=== PATIENT | female | born 1945 | race American Indian/Alaskan Native ===

== ENCOUNTER 2016-09-12 09:13 | Emergency (ER) | payer MEDICARE ==
[2016-09-12 09:20] VITALS: BMI 28.5
[2016-09-12 09:24] VITALS: O2SAT 100
--- NOTE | 2016-09-12 10:35 | C.PDOC ---
History Of Present Illness 71-year-old female, PMHx includes Hypertension and Diabetes, presents to the emergency department with complaints of two day duration of an itchy painful rash to the right leg. Denies fevers, nausea/vomiting, recent travel, or any other associated symptoms. No other complaints at this time. Time Seen by Provider: 09/12/16 09:51 Chief Complaint (Nursing): Abnormal Skin Integrity History Per: Patient History/Exam Limitations: no limitations Past Medical History Reviewed: Historical Data, Nursing Documentation, Vital Signs Vital Signs: Last Vital Signs Temp 97.4 F L 09/12/16 10:39 Pulse 70 09/12/16 10:39 Resp 18 09/12/16 10:39 BP 119/72 09/12/16 10:39 Pulse Ox 100 09/12/16 15:15 - Medical History PMH: Arthritis, Diabetes, HTN, Malignancy (LEUKEMIA) Denies: Chronic Kidney Disease Family History: States: Unknown Family Hx - Social History Hx Tobacco Use: No Hx Alcohol Use: No Hx Substance Use: No - Immunization History Hx Tetanus Toxoid Vaccination: No Hx Influenza Vaccination: No Hx Pneumococcal Vaccination: No Review Of Systems Except As Marked, All Systems Reviewed And Found Negative. Constitutional: Negative for: Fever Respiratory: Negative for: Shortness of Breath Gastrointestinal: Negative for: Vomiting Musculoskeletal: Negative for: Back Pain Skin: Positive for: Rash Physical Exam - Physical Exam Appears: Non-toxic, No Acute Distress Skin: Warm, Dry, Rash (clusters of vesicles anteriolateral aspect of right upper leg.) Head: Atraumatic Eye(s): bilateral: Normal Inspection, PERRL Nose: Normal Oral Mucosa: Moist Lips: Normal Appearing Neck: Normal ROM Respiratory: No Accessory Muscle Use Extremity: Normal ROM Neurological/Psych: Oriented x3, Normal Speech ED Course And Treatment O2 Sat by Pulse Oximetry: 100 Medical Decision Making Medical Decision Making: Impression Shingles Plan * Zovirax * Reassess and Discharge Dispo: Patient will be discharged w/ Rx for Acyclovir, and will be discharged for outpatient f/u with PMD. All questions answered and patient agreeable with plan. Disposition - Disposition Disposition: HOME/ ROUTINE Disposition Time: 11:06 Condition: STABLE Additional Instructions: Follow up with PMD/mud car worker within 1-2 days. Return to Ed if feel worse. Prescriptions: Gabapentin [Neurontin] 100 mg PO TID #60 capsule traMADol [Ultram] 50 mg PO Q6 #30 tab Valacyclovir HCl [Valtrex] 1,000 mg PO TID #42 tablet Instructions: Shingles (ED) - Clinical Impression Clinical Impression: Zoster - Scribe Statement The provider has reviewed the documentation as recorded by the Sanketibe Marie Putnam All medical record entries made by the Sanketibedison were at my direction and personally dictated by me. I have reviewed the chart and agree that the record accurately reflects my personal performance of the history, physical exam, medical decision making, and the department course for this patient. I have also personally directed, reviewed, and agree with the discharge instructions and disposition.
[2016-09-12 10:39] VITALS: BP 119/72; PULSE 70; RESP 18; TEMP 97.4
== END 2016-09-12 11:15 | disposition home or self-care (01) ==
LOC: C.ER 09:13
DX: B02.9 Zoster without complications (principal)

== ENCOUNTER 2016-10-14 05:27 | Emergency (ER) | payer MEDICARE ==
[2016-10-14 05:27] VITALS: BMI 28.5
[2016-10-14 05:57] VITALS: RESP 20
[2016-10-14] MEDS ORDERED: Oxycodone/Acetaminophen 5/325 mg Tab PO STA (06:26)
[2016-10-14] MEDS ORDERED: Oxycodone/Acetaminophen 5/325 mg Tab ONE (06:29)
--- NOTE | 2016-10-14 06:30 | C.PDOC ---
History Of Present Illness 71 year old female was brought to the ED by ambulance with complaints of pain in right shoulder radiating down the right arm for one week. Patient denies any trauma to the right arm, dizziness, or any other complaints at this time. Time Seen by Provider: 10/14/16 05:58 Chief Complaint (Nursing): Upper Extremity Problem/Injury History Per: Patient History/Exam Limitations: no limitations Onset/Duration Of Symptoms: Days (one week ) Current Symptoms Are (Timing): Still Present Quality: "Pain" Severity: Mild Pain Scale Rating Of: 4 Recent travel outside of the [place]: No Past Medical History Reviewed: Historical Data, Nursing Documentation, Vital Signs Vital Signs: Last Vital Signs Temp 98.2 F 10/14/16 05:50 Pulse 56 L 10/14/16 05:50 Resp 20 10/14/16 05:50 BP 108/69 10/14/16 05:50 Pulse Ox 99 10/14/16 06:31 - Medical History PMH: Arthritis, Diabetes, HTN, Hyperlipidemia, Malignancy (LEUKEMIA) Family History: States: Unknown Family Hx - Social History Hx Tobacco Use: No Hx Alcohol Use: No Hx Substance Use: No - Immunization History Hx Tetanus Toxoid Vaccination: No Hx Influenza Vaccination: No Hx Pneumococcal Vaccination: No Review Of Systems Constitutional: Negative for: Fever, Chills, Sweats Cardiovascular: Negative for: Chest Pain, Palpitations Respiratory: Negative for: Cough, Shortness of Breath Gastrointestinal: Negative for: Nausea, Vomiting, Abdominal Pain, Diarrhea Musculoskeletal: Positive for: Shoulder Pain (right ), Arm Pain (right ) Skin: Negative for: Rash, Bruising Physical Exam - Physical Exam Appears: Non-toxic, No Acute Distress Skin: Warm, Dry Head: Atraumatic Oral Mucosa: Moist Neck: Supple Chest: Symmetrical, No Deformity Cardiovascular: Rhythm Regular Respiratory: No Rales, No Rhonchi, No Stridor, No Wheezing Gastrointestinal/Abdominal: Soft, No Tenderness, No Distention, No Guarding, No Rebound Extremity: No Normal ROM (decreased ROM in right arm. Patient describes as needing to forcefully move right arm for movement), Tenderness (tenderness in right shoulder), No Swelling Neurological/Psych: Oriented x3 ED Course And Treatment O2 Sat by Pulse Oximetry: 99 (room air ) Disposition - Disposition Disposition Time: 07:07 Condition: STABLE - Clinical Impression Clinical Impression: Shoulder pain - Scribe Statement The provider has reviewed the documentation as recorded by the Scribe Leia Valenzuela All medical record entries made by the Scribe were at my direction and personally dictated by me. I have reviewed the chart and agree that the record accurately reflects my personal performance of the history, physical exam, medical decision making, and the department course for this patient. I have also personally directed, reviewed, and agree with the discharge instructions and disposition. Physician Patient Turnover Patient Signed Over To: Miriam Taylor Handoff Comments: XRAY pending
--- NOTE | 2016-10-14 07:46 | RAD ---
Right shoulder three views History: Shoulder pain. Comparison: None available. Findings: Mild to moderate narrowing of the glenohumeral and acromioclavicular joint spaces. Productive change with bony osteophyte formation noted off the lateral aspect of the acromion. Productive change and or osteophyte formation/calcific tendinopathy/loose osteochondral body adjacent to the lateral aspect of the greater tuberosity. Impression: Mild to moderate narrowing of the glenohumeral and acromioclavicular joint spaces. Productive change with bony osteophyte formation noted off the lateral aspect of the acromion. Productive change and or osteophyte formation/calcific tendinopathy/loose osteochondral body adjacent to the lateral aspect of the greater tuberosity. If pain persists, consider MRI.
[2016-10-14 07:51] VITALS: BP 110/64; PULSE 62; TEMP 98.4; O2SAT 100
== END 2016-10-14 08:41 | disposition home or self-care (01) ==
LOC: C.ER 05:27
DX: M25.511 Pain in right shoulder (principal)

== ENCOUNTER 2016-12-26 08:47 | Day surgery (SDC) | payer MEDICARE ==
--- NOTE | 2016-12-26 11:39 | CP.SDSHP ---
Same Day Surgery H & P - History Proposed Procedure: THyroid nodule FNA Pre-Op Diagnosis: Right thyroid nodule - Allergies Allergies: Allergies Penicillins Allergy (Verified 09/12/16 09:17) - Physical Exam Vital Signs: Vital Signs 12/26/16 09:14 Temperature 97.4 F L Pulse Rate 61 Respiratory 20 Rate Blood Pressure 105/59 L O2 Sat by Pulse 98 Oximetry Short Stay Discharge - Short Stay Discharge Admitting Diagnosis/Reason for Visit: THYROID NODULE Disposition: HOME/ ROUTINE
--- NOTE | 2016-12-26 11:40 | PCM.SURG1 ---
Surgeon's Initial Post Op Note - Surgeon's Notes Surgeon: [employer] Salesperson: None Type of Anesthesia: Local Pre-Operative Diagnosis: Right thyroid nodule. Operative Findings: Right thyroid nodule. Post-Operative Diagnosis: Right thyroid nodule. Operation Performed: Right thyroid nodule FNA. Specimen/Specimens Removed: Right thyroid nodule FNA samples. Estimated Blood Loss: EBL {In ML}: 1 Date of Surgery/Procedure: 12/26/16 Time of Surgery/Procedure: 11:40
[2016-12-26 11:45] VITALS: BMI 27.1
[2016-12-26 13:02] VITALS: BP 98/58; PULSE 67; RESP 18; TEMP 98.2; O2SAT 99
--- NOTE | 2016-12-28 11:36 | US ---
PROCEDURE: Ultrasound-guided right thyroid lobe fine needle aspiration biopsy. Clinical Indication: Right lobe thyroid nodule. Evaluate for malignancy. COMPARISON: Comparison is made to prior ultrasound of the thyroid gland from 07/26/2016. PROCEDURE: The relative risks and indications for the procedure were explained to the patient and consent obtained. The patient was placed supine on the stretcher with the neck extended and preliminary sonography of the thyroid performed. This reveal a mildly heterogeneous nodule mid/medial aspect of the right thyroid lobe. The neck was prepped and draped in the usual sterile fashion. Three passes with a 25-gauge needle were performed under ultrasound guidance for fine needle aspiration of the heterogeneous nodule in the right thyroid lobe. The slides were reviewed by pathology and deemed adequate. The patient tolerated the procedure well. IMPRESSION: Ultrasound-guided fine needle aspiration biopsy of right thyroid lobe nodule as described above.
== END 2016-12-26 13:02 | disposition home or self-care (01) ==
LOC: C.SPRAD 08:47
PROVIDERS: ATTEND Radiology Vascular & Interventional Radiology
DX: E04.1 Nontoxic single thyroid nodule (principal); Z88.0 Allergy status to penicillin

== ENCOUNTER 2018-01-20 06:10 | Emergency (ER) | payer MEDICARE ==
[2018-01-20 06:10] VITALS: BMI 27.1
[2018-01-20] MEDS ORDERED: Sodium Chloride 0.9% 1,000 ML IV ONE (07:55)
[2018-01-20 08:12] LABS: BASO % 0.5 % (0.0-2.0); EOS # 0.2 K/uL (0.0-0.7); EOS % 4.6 % (0.0-4.0); HEMOGLOBIN 12.2 g/dL (11.0-16.0); LYMPH # 1.3 K/uL (1.0-4.3); LYMPH % 26.5 % (20.0-40.0); MEAN CELL VOLUME 86.4 fL (81.0-99.0); MEAN CORPUSCULAR HEMOGLOBIN 29.2 pg (27.0-31.0); MEAN CORPUSCULAR HGB CONC 33.8 g/dL (33.0-37.0); MEAN PLATELET VOLUME 9.2 fL (7.2-11.7); MONO # 0.4 K/uL (0.0-0.8); NEUT # 2.9 K/uL (1.8-7.0); NEUT % 59.4 % (50.0-75.0); RBC 4.16 Mil/uL (3.80-5.20); WHITE BLOOD COUNT 4.9 K/uL (4.8-10.8)
--- NOTE | 2018-01-20 08:15 | C.PDOC ---
History Of Present Illness 72 year old female presents to the emergency department with complaints of experiencing a cough, nausea, vomiting, diarrhea, ear pain, and sore throat for the last four days. Patient reports that her cough is productive with yellow and white sputum. She reports that she is a smoker who recently quit two weeks ago, and she denies any history of lung diseases. She states that she has been having post-tussive emesis, nausea, and has had 3 episodes of diarrhea. She denies travel, chest pain, shortness of breath, rash, neck pain, and abdominal pain. Time Seen by Provider: 01/20/18 07:07 Chief Complaint (Nursing): Cough, Cold, Congestion History Per: Patient History/Exam Limitations: no limitations Onset/Duration Of Symptoms: Days (4) Current Symptoms Are (Timing): Still Present Location Of Pain: Ear(s), Throat Associated Symptoms: Fever, Sore Throat, Cough, Sputum, Nausea, Vomiting, Diarrhea Ear Symptoms: Bilateral: Ear Pain Past Medical History Reviewed: Historical Data, Nursing Documentation, Vital Signs Vital Signs: Last Vital Signs Temp 98.1 F 01/20/18 11:34 Pulse 71 01/20/18 11:34 Resp 16 01/20/18 11:34 BP 136/75 01/20/18 11:34 Pulse Ox 99 01/20/18 11:34 - Medical History PMH: Arthritis, Cardia Arrhythmia ( BRADYCARDIA), Diabetes, HTN, Hypercholesterolemia, Hyperlipidemia, Malignancy (LEUKEMIA), Chronic Kidney Disease (RENAL INSUFFICIENCY) Surgical History: No Surg Hx Family History: States: No Known Family Hx - Social History Hx Tobacco Use: No Hx Alcohol Use: No Hx Substance Use: No - Immunization History Hx Tetanus Toxoid Vaccination: No Hx Influenza Vaccination: No Hx Pneumococcal Vaccination: No Review Of Systems Except As Marked, All Systems Reviewed And Found Negative. Constitutional: Positive for: Fever Cardiovascular: Negative for: Chest Pain Respiratory: Positive for: Cough, Sputum. Negative for: Shortness of Breath Gastrointestinal: Positive for: Nausea, Vomiting, Diarrhea. Negative for: Abdominal Pain Musculoskeletal: Negative for: Neck Pain Skin: Negative for: Rash Physical Exam - Physical Exam Appears: Non-toxic, No Acute Distress Skin: Warm, Dry Head: Atraumatic, Normacephalic Eye(s): bilateral: Normal Inspection Ear(s): Bilateral: Normal Oral Mucosa: Moist Throat: Normal, No Erythema, No Exudate Neck: Normal, Supple Chest: Symmetrical Cardiovascular: Rhythm Regular, No Murmur Respiratory: No Rales, Rhonchi (coarse, bilateral), No Wheezing, No Other ( retractions) Gastrointestinal/Abdominal: Normal Exam, Soft, No Tenderness, No Guarding, No Rebound Neurological/Psych: Oriented x3, Normal Speech, Normal Cognition ED Course And Treatment - Laboratory Results Result Diagrams: 01/20/18 08:02 01/20/18 08:02 O2 Sat by Pulse Oximetry: 98 (RA) Pulse Ox Interpretation: Normal Progress Note: Plan: EKG. BNP. CMP. Troponin. CBC. CXR One View. Duoneb 3ml. NaCl IV Fluids. Nebulizer Treatment. Peak Flow Pre/Post Medical Decision Making Medical Decision Making: On re-exam, the patient reports improvement of symptoms. Lungs are CTA, heart is RRR, abdomen is soft, non-tender and tolerating PO well. Pt is ambultory in the Ed with steady gait. Follow up with the medical doctor within 1-2 days. Return if worsened. Disposition - Disposition Referrals: Carolina Morris MD [Medical Doctor] - Disposition: HOME/ ROUTINE Disposition Time: 11:09 Condition: STABLE Additional Instructions: Follow up with the medical doctor within 1-2 days. Return if worsened. Prescriptions: Albuterol HFA [Ventolin HFA 90 mcg/actuation (8 g)] 1 puff IH Q6 #100 puff Azithromycin [Zithromax] 250 mg PO DAILY #4 tab predniSONE [Prednisone] 20 mg PO BID #10 tab Spacer, Inhalation [Aerochamber] 1 dev IH Q4 #1 dev Instructions: Acute Bronchitis, Adult (DC) Forms: [employer] (Panamanian) - Clinical Impression Clinical Impression: Bronchitis - PA / TRAINING MANAGER / Resident Statement MD/DO has reviewed & agrees with the documentation as recorded. - Scribe Statement The provider has reviewed the documentation as recorded by the Scribe (Matthew Morales) All medical record entries made by the Scribe were at my direction and personally dictated by me. I have reviewed the chart and agree that the record accurately reflects my personal performance of the history, physical exam, medical decision making, and the department course for this patient. I have also personally directed, reviewed, and agree with the discharge instructions and disposition.
[2018-01-20 08:33] LABS: ALB/GLOB RATIO 1.4 (1.0-2.1); ALT/SGPT 26 U/L (9-52); AST/SGOT 17 U/L (14-36); BLOOD UREA NITROGEN 15 mg/dL (7-17); CALCIUM 9.6 mg/dl (8.6-10.4); GFR NON-AFRICAN AMERICAN > 60
[2018-01-20 08:40] LABS: B-TYPE NATRIURETIC PEPTIDE 132 pg/mL (0-900)
[2018-01-20] MEDS: Albuterol-Ipratrop 3 mg / 0.5 (3 ml) UD IH SCH ×3 (08:40→08:58)
[2018-01-20] MEDS ORDERED: Albuterol-Ipratrop 3 mg / 0.5 (3 ml) UD ONE (08:53)
--- NOTE | 2018-01-20 09:08 | RAD ---
Date of service: 01/20/2018 PROCEDURE: CHEST RADIOGRAPH, 1 VIEW HISTORY: SOB COMPARISON: 08/03/2015 FINDINGS: LUNGS: The lungs are well inflated and clear. PLEURA: No pneumothorax or pleural fluid seen. CARDIOVASCULAR: Normal. OSSEOUS STRUCTURES: No significant abnormalities. VISUALIZED UPPER ABDOMEN: Normal. OTHER FINDINGS: None. IMPRESSION: No active pulmonary disease.
[2018-01-20 11:38] VITALS: BP 136/75; PULSE 71; RESP 16; TEMP 98.1
[2018-01-20 18:13] VITALS: O2SAT 98
--- NOTE | 2018-01-22 14:54 | CARD ---
APPROVED REPORT Date of service: 01/20/2018 EKG Measurement Heart [id number] MT [id number] [id number] <Conclusion> Sinus bradycardia Nonspecific T wave abnormality Abnormal ECG
== END 2018-01-20 11:37 | disposition home or self-care (01) ==
LOC: C.ER 06:10
DX: J40 Bronchitis, not specified as acute or chronic (principal)
CPT/HCPCS: 71045; 80053; 82948; 83880; 84484; 85025; 93005; 94640; 96361; 96374; 99285; J2930; J7030

== ENCOUNTER 2018-07-07 10:12 | Outpatient (CLI) | payer MEDICARE | END 2018-07-07 10:13 | disposition home or self-care (01) | LOC: C.LAB 10:12 | DX: E04.1 Nontoxic single thyroid nodule (principal); E23.1 Drug-induced hypopituitarism; E11.69 Type 2 diabetes mellitus with other specified complication; E78.2 Mixed hyperlipidemia; E55.9 Vitamin D deficiency, unspecified ==